=== PATIENT | male | born 1970 | race African-American/Black ===

== ENCOUNTER 2017-01-01 21:32 | Emergency (ER) | payer SELFPAY ==
[~2017-01-01] VITALS: Ht 170.2 cm; Wt 81.0 kg
[2017-01-01 22:08] VITALS: BP 150/84
[2017-01-01] MEDS ORDERED: SODIUM CHLORIDE 0.9% 1,000 ML IV ONE (22:33)
[2017-01-01] MEDS ORDERED: THIAMINE HCL 100 MG/1 ML 2ML VIAL IV ONE (22:45)
[2017-01-01 23:10] LABS: BASOPHILS % 0.3 % (0.0-2.0); EOSINOPHILS % 0.2 % (0.0-5.0); HEMATOCRIT. 41.5 % (42.0-52.0); HEMOGLOBIN. 13.3 g/dL (14.0-18.0); LYMPHOCYTES % 15.2 % (20.0-50.0); MEAN CORPUSCULAR HEMOGLOBIN 26.3 pg (28.0-32.0); MEAN CORPUSCULAR VOLUME 82.3 fL (80.0-94.0); MEAN PLATELET VOLUME 8.1 fl (7.4-10.4); MONOCYTES % 8.1 % (2.0-8.0); NEUTROPHILS % 76.2 % (40.0-76.0); PLATELET 239 x1000/uL (130-400); RED BLOOD CELL COUNT 5.04 mill/uL (4.7-6.1); RED CELL DISTRIBUTION WIDTH 13.6 % (11.6-14.6)
[2017-01-01 23:14] LABS: CHLORIDE 109 mEq/L (98-107)
[2017-01-01 23:20] LABS: CARBON DIOXIDE 26 mEq/L (21-32); ETHANOL BLOOD < 10 mg/dL
== END 2017-01-02 00:02 | disposition left against medical advice (07) ==
LOC: EDBD 22:08 → ER 22:08
DX: R41.82 Altered mental status, unspecified (principal); F17.200 Nicotine dependence, unspecified, uncomplicated
CPT/HCPCS: 36415; 80053; 80307; 80329; 85025; 99284; G0482; Z7610; 99283; J7030